=== PATIENT | female | born 1970 | race Caucasian/White ===

== ENCOUNTER → 2017-08-20 | Outpatient (CLI) | payer BC ==
[~2017-08-20] MED LIST: ALLEGRA180 MG PO; HCTZ 25MG25 MG PO; METOPROLOL TART50 MG PO; MVI; NASONEX SPRAY NAS; PROVENTIL0.09 MG/A1 IH; TRAZODONE150 MG PO; ZOCOR20 MG PO; ZOLOFT
== END ==
LOC: MC.RAD 14:38
DX: Z12.31 Encounter for screening mammogram for malignant neoplasm of breast (principal); Z98.82 Breast implant status

== ENCOUNTER → 2018-10-14 | Outpatient (CLI) | payer BC ==
[2018-10-14 11:53] LABS: CREATININE, serum 0.86 mg/dL (0.52-1.25)
== END ==
LOC: COL.LAB 11:20
PROVIDERS: Nurse Practitioner
DX: Z01.89 Encounter for other specified special examinations (principal)

== ENCOUNTER → 2018-11-10 | Outpatient (CLI) | payer BC | LOC: MC.RAD 09:23 | DX: Z12.31 Encounter for screening mammogram for malignant neoplasm of breast (principal); Z98.890 Other specified postprocedural states ==

== ENCOUNTER → 2019-11-16 | Outpatient (CLI) | payer BC | LOC: MC.RAD 12:28 | DX: Z12.31 Encounter for screening mammogram for malignant neoplasm of breast (principal); Z98.890 Other specified postprocedural states ==